=== PATIENT | male | born 1955 | race Caucasian/White ===

== ENCOUNTER 2018-09-14 08:26 | Outpatient (CLI) | payer OTHER | END 2018-09-14 08:27 | LOC: LAB 08:26 | PROVIDERS: ATTEND Psychiatry & Neurology Neurology | DX: S09.8XXA Other specified injuries of head, initial encounter (principal); F06.8 Other specified mental disorders due to known physiological condition; F10.10 Alcohol abuse, uncomplicated; K21.9 Gastro-esophageal reflux disease without esophagitis; E11.8 Type 2 diabetes mellitus with unspecified complications; E03.9 Hypothyroidism, unspecified; F32.9 Major depressive disorder, single episode, unspecified; B35.3 Tinea pedis; N18.9 Chronic kidney disease, unspecified; H52.00 Hypermetropia, unspecified eye; H52.209 Unspecified astigmatism, unspecified eye; N40.0 Benign prostatic hyperplasia without lower urinary tract symptoms | CPT/HCPCS: 36415; 82607; 82746; 82947; 83921 ==

== ENCOUNTER 2019-05-23 13:17 | Emergency (ER) | payer OTHER ==
--- NOTE | 2019-05-23 13:41 | ED Physician Documentation ---
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 Choking resolved, but ? aspiration.) - ROS CONST: no problems EYES/ENT: none CVS/RESP: cough GI/: none MS/SKIN/LYMPH: none - PAST HX Past History: other (anxiety/depression, DM, GERD) Allergies/Adverse Reactions: Allergies Allergy/AdvReac Type Severity Reaction Status Date / Time No Known Allergies Allergy Verified 05/23/19 14:33 Home Medications: Ambulatory Orders Medication Instructions Recorded Aspirin [Clint] 81 mg PO DAILY 05/23/19 Atorvastatin Calcium [Lipitor] 40 mg PO HS 05/23/19 Bupropion HCl [Wellbutrin Xl] 150 mg PO DAILY 05/23/19 Bupropion HCl [Wellbutrin Xl] 300 mg PO DAILY 05/23/19 Divalproex Sodium [Depakote] 500 mg PO BID 05/23/19 Docusate Sodium [Colace] 100 mg PO BID PRN 05/23/19 Dutasteride [Avodart] 0.5 mg PO DAILY 05/23/19 Levothyroxine Sodium [Euthyrox] 50 mcg PO DAILY 05/23/19 Magnesium Hydroxide [Milk of 30 ml PO DAILY PRN 05/23/19 Magnesia] Metoclopramide HCl [Reglan] 5 mg PO ACHS 05/23/19 Pantoprazole Sodium [Protonix] 20 mg PO DAILY 05/23/19 Tamsulosin HCl [Flomax] 0.4 mg PO DAILY 05/23/19 Ziprasidone HCl [Geodon] 80 mg PO DAILY 05/23/19 busPIRone HCL [Buspar] 5 mg PO BID 05/23/19 clonazePAM [Klonopin] 0.5 mg PO HS 05/23/19 - SOCIAL HX Smoking History: other (unknown if ever smoked) - FAMILY HX Family History: No - REVIEWED ASSESSMENTS Nursing Assessment Reviewed: Yes Vitals Reviewed: Yes Progress - Progress Progress: CXR: Normal heart shadow and mediastinum. Very small linear infiltrates in the left upper lobe acquired followup examination. No large alveolar infiltrates or of pleural effusion. No pneumothorax. Normal bony thorax. Impression: Very small linear infiltrates in left upper lung. Rocephin 1 gm in ER Rx Z-antoinette as directed on package. General Adult Physical Exam - PHYSICAL EXAM GENERAL APPEARANCE: no distress EENT: pharynx normal NECK: normal inspection, supple RESPIRATORY: other (coarse breath sound L upper lung field) CVS: reg rate & rhythm, heart sounds normal ABDOMEN: soft, no organomegaly, normal bowel sounds BACK: normal inspection, no CVA tenderness SKIN: warm/dry, normal color EXTREMITIES: non-tender, normal range of motion, no evidence of injury NEURO: motor nml, sensation nml Discharge Clincal Impression: mild hyponatremia, small linear infiltrates, L upper lung Referrals: Primary Doctor,No [Primary Care Provider] - Condition: Stable Disposition: 04 [facility] Decision to Admit: NO Decision Time: 15:54
[2019-05-23 14:20] LABS: BASOPHILS % 0.2 % (0.0-1.5); NEUTROPHILS # 3.3 # k/uL (1.4-7.7)
[2019-05-23 14:36] LABS: eGFR (Non-African) > 60
[2019-05-23] MEDS ORDERED: SODIUM CHLORIDE IV ONE (14:41)
[2019-05-23] MEDS ORDERED: 0.9 % SODIUM CHLORIDE 1,000 ML IV ONE (14:41)
[2019-05-23] MEDS ORDERED: cefTRIAXone SODIUM 1 GM in 0.9 % SODIUM CHLORIDE 50 ML IV ONE (14:43)
--- NOTE | 2019-05-23 16:10 | Diagnostic Imaging Report ---
ROXY SINGH [facility] [address] [facility] [address] [address] Report Submission Date: May 23, 2019 2:21:42 PM CDT Patient Study Name: CHRISTIANO MORALES Date: May 23, 2019 1:44:18 PM CDT Modality Type: DX Gender: M Description: CHEST 2VIEW : 51 Institution: [facility] Physician: ROXY SINGH Chest PA and lateral views. Clinical history: Cough, possible aspiration Normal heart shadow and mediastinum. Very small linear infiltrates in the left upper lobe acquired followup examination. No large alveolar infiltrates or of pleural effusion. No pneumothorax. Normal bony thorax. Impression: Very small linear infiltrates in left upper lung Electronically signed on May 23, 2019 2:21:42 PM CDT by: Elmer CRAWFORD
[2019-05-23 16:41] VITALS: BP 147/62
== END 2019-05-23 17:13 ==
LOC: ED 13:17
DX: E87.1 Hypo-osmolality and hyponatremia (principal); R91.1 Solitary pulmonary nodule
CPT/HCPCS: 71046; 80053; 85025; 96361; 96365; 99283; 99284; J0696; J7030; S1016